=== PATIENT | female | born 1965 | race Caucasian/White ===

== ENCOUNTER → 2016-03-06 | Outpatient (CLI) | payer MEDICARE, MEDICAID ==
[~2016-03-06] MED LIST: ALLEGRA180 MG PO; CARDIZEM120 MG; Fioricet 325 MG1 TAB PO; PROAIR HFA0.09 MG/AC IH; REGLAN10 MG PO; SINGULAIR10 MG PO; SOMA350 MG; SYNTHROID0.05 MG PO; VICODIN HP 6601 TA1 PO; ZOFRAN4 MG PO
[2016-03-06 11:42] LABS: HEMOGLOBIN A1c 4.9 % (4.8-5.6)
[2016-03-06 11:53] LABS: EST GLOM FILT AFRICAN AMERICAN > 60 ml/min
[2016-03-07 06:14] LABS: TOTAL PROTEIN, SERUM 6.6 g/dL (6.0-8.5)
[2016-03-07 08:11] LABS: RHEUMATOID ARTHRITIS FACTOR <10.0 IU/mL (0.0-13.9)
[2016-03-07 13:04] LABS: SJOGREN ANTI-SS-A <0.2 AI (0.0-0.9); SJOREN AB, ANTI-SS-B <0.2 AI (0.0-0.9)
[2016-03-07 15:08] LABS: A/G RATIO 1.4 (0.7-1.7); ALBUMIN 3.9 g/dL (2.9-4.4); ALPHA-1-GLOBULIN 0.3 g/dL (0.0-0.4); BETA GLOBULIN 0.9 g/dL (0.7-1.3); GAMMA GLOBULIN 0.9 g/dL (0.4-1.8); GLOBULIN, TOTAL 2.7 g/dL (2.2-3.9); M-SPIKE Not Observed g/dL (Not Observed)
[2016-03-07 18:08] LABS: T.PALLIDUM ANTIBODIES Negative (Negative)
[2016-03-08 14:06] LABS: METHYLMALONIC ACID 706961 457 nmol/L (0-378)
== END | disposition home or self-care (01) ==
LOC: LAB 10:52
PROVIDERS: Psychiatry & Neurology Neurology
DX: G60.9 Hereditary and idiopathic neuropathy, unspecified (principal); E23.6 Other disorders of pituitary gland; Z79.899 Other long term (current) drug therapy

== ENCOUNTER → 2016-06-19 | Outpatient (CLI) | payer OTHER | END | disposition home or self-care (01) | LOC: LAB 17:26 | DX: Z51.81 Encounter for therapeutic drug level monitoring (principal); E53.8 Deficiency of other specified B group vitamins ==

== ENCOUNTER 2016-12-01 15:45 | Emergency (ER) | payer OTHER ==
[~2016-12-01] VITALS: Wt 56.2 kg
--- NOTE | ~2016-12-01 | EKG ---
[place], [place] ELECTROCARDIOGRAM REPORT NAME: NITA LARA UNIT #: [id number] ROOM: DOCTOR: RAJAN SANCHEZ MD BIRTHDATE: [birth year] DOS: 12/01/2016 TIME: 1620 hours. Normal sinus rhythm at 72 beats per minute. Low voltage in limb leads. The tracing is otherwise normal. No previous tracing is available for comparison. RAJAN SANCHEZ MD CM:[email or web address]:ELECTROCARDIOGRAM REPORT [id number] RAJAN SANCHEZ MD
[2016-12-01 16:17] LABS: BASO % 0.1 % (0.0-1.0); EOS % 0.1 % (1.0-4.0); HEMOGLOBIN 13.6 g/dl (12.0-16.0); LYMPH # 1.3 10*3/uL (1.3-4.4); LYMPH % 18.1 % (27.0-41.0); MEAN CORPUSCULAR HGB 31.6 pg (27.0-31.0); MONO # 0.4 10*3/uL (0.1-1.0); MONO % 5.2 % (3.0-9.0); NEUT # 5.5 10*3/uL (2.3-7.9); NEUT % 76.2 % (47.0-73.0); PLATELET COUNT AUTOMATED 349 10*3/uL (130-400); RED CELL DISTRI WIDTH 13.1 % (0-14.5); WHITE BLOOD COUNT 7.2 10*3/uL (4.8-10.8)
[2016-12-01 16:35] LABS: ALBUMIN 4.2 gm/dl (3.1-4.5); ALKALINE PHOSPHATASE 75 U/L (45-117); BUN 17 mg/dl (7-24); CHLORIDE 103 mmol/L (98-107); CREATININE 0.72 mg/dL (0.55-1.02); POTASSIUM 3.8 mmol/L (3.5-5.1); SGOT/AST 18 IU/L (3-35); SGPT/ALT 20 U/L (12-78); SODIUM 138 mmol/L (136-145); TOTAL PROTEIN 8.1 gm/dL (6.4-8.2)
[2016-12-01 16:36] LABS: TROPONIN I < 0.015 ng/ml (<0.045)
[2016-12-01 16:52] LABS: BILIRUBIN NEGATIVE (NEGATIVE); BLOOD NEGATIVE (NEGATIVE); CLARITY CLEAR (CLEAR); COLOR YELLOW (YELLOW); GLUCOSE NEGATIVE (NEGATIVE); KETONE 1+ (NEGATIVE); LEUKO ESTERASE NEGATIVE (NEGATIVE); NITRITE NEGATIVE (NEGATIVE); SPECIFIC GRAVITY >= 1.030 (1.005-1.030); UROBILINOGEN 0.2 E.U./dl (0.2-1.0)
[2016-12-01 16:58] LABS: HYALINE CAST 0-2
[2016-12-01 16:59] LABS: MUCOUS 2+
[2016-12-01 17:00] LABS: BACTERIA 1+
[2016-12-01] MEDS ORDERED: GOOD NEIGHBOR M25 M1 PO (17:36)
[2016-12-01] MEDS ORDERED: ZOFRAN4 MG PO (17:36)
== END 2016-12-01 17:52 | disposition home or self-care (01) ==
LOC: ED 15:45
PROVIDERS: Nurse Practitioner Family
DX: R42 Dizziness and giddiness (principal); R51 Headache; R05 Cough; R09.81 Nasal congestion; R03.0 Elevated blood-pressure reading, without diagnosis of hypertension; Z88.2 Allergy status to sulfonamides; Z88.6 Allergy status to analgesic agent; Z88.8 Allergy status to other drugs, medicaments and biological substances; Z91.040 Latex allergy status; Z79.899 Other long term (current) drug therapy

== ENCOUNTER 2017-09-16 14:45 | Emergency (ER) | payer OTHER ==
[~2017-09-16] VITALS: Ht 162.5 cm; Wt 53.5 kg
[~2017-09-16 14:45] MED LIST changes: +GOOD NEIGHBOR M25 M1 PO
[2017-09-16] MEDS ORDERED: OXYCODONE5 M1 PO (14:49)
[2017-09-16] MEDS ORDERED: MACROBID100 M1 PO (14:49)
[2017-09-16 15:11] LABS: BILIRUBIN 1+ (NEGATIVE); BLOOD NEGATIVE (NEGATIVE); CLARITY CLEAR (CLEAR); COLOR YELLOW (YELLOW); GLUCOSE NEGATIVE (NEGATIVE); KETONE NEGATIVE (NEGATIVE); LEUKO ESTERASE NEGATIVE (NEGATIVE); NITRITE NEGATIVE (NEGATIVE)
[2017-09-16 15:19] LABS: BASO % 0.1 % (0.0-1.0); EOS # 0.1 10*3/uL (0.0-0.4); EOS % 0.9 % (1.0-4.0); HEMATOCRIT 35.8 % (37.0-47.0); HEMOGLOBIN 11.8 g/dl (12.0-16.0); LYMPH # 1.5 10*3/uL (1.3-4.4); LYMPH % 20.1 % (27.0-41.0); MEAN CELL VOLUME 91.1 fl (81.0-99.0); MEAN PLATELET VOLUME 10.9 fl (9.6-12.3); MONO # 0.5 10*3/uL (0.1-1.0); MONO % 7.3 % (3.0-9.0); NEUT # 5.3 10*3/uL (2.3-7.9); NEUT % 71.3 % (47.0-73.0); PLATELET COUNT AUTOMATED 433 10*3/uL (130-400); RED BLOOD COUNT 3.93 10*6/uL (4.10-5.10); RED CELL DISTRI WIDTH 12.9 % (0-14.5); WHITE BLOOD COUNT 7.4 10*3/uL (4.8-10.8)
[2017-09-16 15:25] LABS: RBC 0-2 rbc/hpf (0-2); WBC 16-20 wbc/hpf (0-5)
[2017-09-16 15:26] LABS: BACTERIA 1+; MUCOUS TRACE
[2017-09-16 15:34] LABS: ALBUMIN 3.3 gm/dl (3.1-4.5); ALKALINE PHOSPHATASE 92 U/L (45-117); BUN 15 mg/dl (7-24); CHLORIDE 106 mmol/L (98-107); CREATININE 0.84 mg/dL (0.55-1.02); POTASSIUM 3.1 mmol/L (3.5-5.1); SGOT/AST 15 IU/L (3-35); SGPT/ALT 32 U/L (12-78); SODIUM 143 mmol/L (136-145); TOTAL PROTEIN 7.8 gm/dL (6.4-8.2)
[2017-09-16] MEDS ORDERED: PYRIDIUM200 M1 PO (16:46)
[2017-09-16] MEDS ORDERED: ZOFRAN4 MG PO (16:46)
[2017-09-16] MEDS ORDERED: CIPRO500 MG PO (16:49)
== END 2017-09-16 17:12 | disposition home or self-care (01) ==
LOC: ED 14:45
PROVIDERS: Nurse Practitioner Family
DX: N39.0 Urinary tract infection, site not specified (principal); R03.0 Elevated blood-pressure reading, without diagnosis of hypertension; R10.2 Pelvic and perineal pain; Z88.2 Allergy status to sulfonamides; Z88.6 Allergy status to analgesic agent; Z88.8 Allergy status to other drugs, medicaments and biological substances; Z91.040 Latex allergy status; Z79.899 Other long term (current) drug therapy

== ENCOUNTER 2017-12-28 04:32 | Emergency (ER) | payer OTHER ==
[~2017-12-28] VITALS: Ht 162.5 cm; Wt 53.5 kg
[~2017-12-28 04:32] MED LIST changes: +CIPRO500 MG PO; +MACROBID100 M1 PO; +OXYCODONE5 M1 PO; +PYRIDIUM200 M1 PO
== END 2017-12-28 06:58 | disposition home or self-care (01) ==
LOC: ED 04:32
DX: S16.1XXA Strain of muscle, fascia and tendon at neck level, initial encounter (principal); S20.212A Contusion of left front wall of thorax, initial encounter; S09.90XA Unspecified injury of head, initial encounter; J45.909 Unspecified asthma, uncomplicated; Z90.49 Acquired absence of other specified parts of digestive tract; Z88.2 Allergy status to sulfonamides; Z88.6 Allergy status to analgesic agent; Z88.8 Allergy status to other drugs, medicaments and biological substances; Z79.2 Long term (current) use of antibiotics; Z79.899 Other long term (current) drug therapy; V89.1XXA Person injured in unspecified nonmotor-vehicle accident, nontraffic, initial encounter; Y93.89 Activity, other specified; Y92.89 Other specified places as the place of occurrence of the external cause; Y99.8 Other external cause status

== ENCOUNTER → 2018-04-08 | Outpatient (CLI) | payer OTHER ==
[2018-04-08 08:33] LABS: BASO % 0.5 % (0.0-1.0); EOS # 0.2 10*3/uL (0.0-0.4); EOS % 3.2 % (1.0-4.0); HEMATOCRIT 35.8 % (37.0-47.0); HEMOGLOBIN 11.8 g/dl (12.0-16.0); LYMPH # 1.7 10*3/uL (1.3-4.4); LYMPH % 29.9 % (27.0-41.0); MEAN CELL VOLUME 95.5 fl (81.0-99.0); MEAN CORPUSCULAR HGB 31.5 pg (27.0-31.0); MEAN PLATELET VOLUME 9.8 fl (9.6-12.3); MONO # 0.6 10*3/uL (0.1-1.0); MONO % 11.4 % (3.0-9.0); NEUT # 3.1 10*3/uL (2.3-7.9); NEUT % 54.6 % (47.0-73.0); PLATELET COUNT AUTOMATED 310 10*3/uL (130-400); RED BLOOD COUNT 3.75 10*6/uL (4.10-5.10); RED CELL DISTRI WIDTH 13.3 % (0-14.5); WHITE BLOOD COUNT 5.6 10*3/uL (4.8-10.8)
[2018-04-08 08:42] LABS: BUN 16 mg/dl (7-24); CPK 84 U/L (26-192)
[2018-04-09 13:10] LABS: ANTI-RNP ANTIBODIES 1.6 AI (0.0-0.9)
[2018-04-09 14:11] LABS: A/G RATIO 1.5 (0.7-1.7); ALBUMIN 3.6 g/dL (2.9-4.4); ALPHA-1-GLOBULIN 0.3 g/dL (0.0-0.4); ALPHA-2-GLOBULIN 0.6 g/dL (0.4-1.0); BETA GLOBULIN 0.8 g/dL (0.7-1.3); GAMMA GLOBULIN 0.6 g/dL (0.4-1.8); GLOBULIN, TOTAL 2.4 g/dL (2.2-3.9); M-SPIKE Not Observed g/dL (Not Observed)
[2018-04-09 15:06] LABS: ALDOLASE 002030 2.3 U/L (3.3-10.3)
[2018-04-09 21:10] LABS: CCP ANTIBODIES IGG/IGA 8 units (0-19)
== END | disposition home or self-care (01) ==
LOC: LAB 07:14
PROVIDERS: Internal Medicine Rheumatology
DX: E55.9 Vitamin D deficiency, unspecified (principal); E03.9 Hypothyroidism, unspecified; I70.229 Atherosclerosis of native arteries of extremities with rest pain, unspecified extremity; M62.81 Muscle weakness (generalized); M25.50 Pain in unspecified joint; R53.83 Other fatigue

== ENCOUNTER 2019-02-25 18:17 | Emergency (ER) | payer OTHER ==
[~2019-02-25] VITALS: Wt 63.5 kg
[2019-02-25] MEDS ORDERED: LEVOFLOXACIN500 MG PO (19:47)
== END 2019-02-25 19:56 | disposition home or self-care (01) ==
LOC: ED 18:17
DX: J18.9 Pneumonia, unspecified organism (principal); Z88.2 Allergy status to sulfonamides; Z88.6 Allergy status to analgesic agent; Z88.8 Allergy status to other drugs, medicaments and biological substances; Z79.899 Other long term (current) drug therapy

== ENCOUNTER → 2019-11-12 | Outpatient (CLI) | payer OTHER ==
[~2019-11-12] MED LIST changes: +LEVOFLOXACIN500 MG PO
[2019-11-18 00:06] LABS: METHYLMALONIC ACID 265 nmol/L (0-378)
== END | disposition home or self-care (01) ==
LOC: LAB 16:45
PROVIDERS: ATTEND Physician Assistant
DX: G60.9 Hereditary and idiopathic neuropathy, unspecified (principal); M35.1 Other overlap syndromes; Z79.899 Other long term (current) drug therapy

== ENCOUNTER 2019-12-17 19:05 | Inpatient (IN) | payer OTHER ==
[~2019-12-17] VITALS: Ht 162.6 cm; Wt 69.0 kg
[2019-12-17 19:14] VITALS: BP 131/71
[2019-12-17 20:13] LABS: HEMATOCRIT 33.7 % (37.0-47.0); MEAN CELL VOLUME 88.9 fl (81.0-99.0); MEAN CORPUSCULAR HGB 28.2 pg (27.0-31.0); MEAN CORPUSCULAR HGB CONC 31.8 g/dl (33.0-37.0); MEAN PLATELET VOLUME 10.2 fl (9.6-12.3); PLATELET COUNT AUTOMATED 323 10*3/uL (130-400); RED BLOOD COUNT 3.79 10*6/uL (4.10-5.10); RED CELL DISTRI WIDTH 13.8 % (0-14.5); WHITE BLOOD COUNT 14.9 10*3/uL (4.8-10.8)
--- NOTE | 2019-12-17 20:14 | NUR ---
Pt to ct at this time.
--- NOTE | 2019-12-17 20:24 | NUR ---
Pt back from ct at this time
[2019-12-17 20:31] LABS: BASOPHILS 1 % (0-1); PLATELET SUFFICIENCY NORMAL (NORMAL); TOTAL CELLS COUNTED 100 #CELLS
[2019-12-17 20:36] LABS: ALBUMIN 2.9 gm/dl (3.1-4.5); CREATININE 1.2 mg/dL (0.55-1.02); POTASSIUM 3.2 mmol/L (3.5-5.1); TOTAL PROTEIN 7.3 gm/dL (6.4-8.2)
[2019-12-17 20:47] VITALS: BP 108/47
--- NOTE | 2019-12-17 20:51 | NUR ---
Family updated on pt status at this time.
--- NOTE | 2019-12-17 22:21 | NUR ---
Pt currently sleeping at this time.
--- NOTE | 2019-12-17 22:30 | NUR ---
in to see pt at this time and stated she is going to admit pt at this time.
[2019-12-17 22:37] VITALS: BP 117/55
--- NOTE | 2019-12-17 23:43 | NUR ---
Family updated on pt status at this time.Aware pt is being admitted at this time.
[2019-12-18] VITALS (10 sets, daily range): BP systolic 103–148; BP diastolic 55–102
--- NOTE | 2019-12-18 01:07 | NUR ---
Pt currently sleeping at this time.
--- NOTE | 2019-12-18 02:30 | NUR ---
In to see pt at this time.Pt states she is doing ok and does not need to void at this time.Pt given snack at this time,
[2019-12-18 07:07] LABS: BILIRUBIN Negative (Negative); BLOOD Negative (Negative); CLARITY Clear (Clear); COLOR Yellow (Yellow); GLUCOSE Negative (Negative); KETONE Negative (Negative); LEUKO ESTERASE 1+ (Negative); NITRITE Negative (Negative); PH 6.5 (4.5-8.0); SPECIFIC GRAVITY 1.015 (1.001-1.030)
--- NOTE | 2019-12-18 07:08 | NUR ---
Transfer of care to Fouzia garcia.
--- NOTE | 2019-12-18 07:42 | NUR ---
THE PATIENTS BREAKFAST WAS ORDERED
[2019-12-18 07:48] LABS: BACTERIA TRACE
--- NOTE | 2019-12-18 08:24 | NUR ---
A 54, admitted to , under the services of ADONIS Levin DO with a diagnosis of BRONCHOSPASM,BRONCHITIS. Chief complaint is SHORT OF BREATH,COUGH. Patient arrived via stretcher from ER. Monitor applied. Initial assessment completed. Vital signs taken and recorded. ADONIS LEVIN DO notified of admission to the unit. Orders received. See assessment for past medical history, medications and allergies. Patient and/or family oriented to unit. [facility]. Clothing/patient valuable form completed. KARYN MARTINEZ
[2019-12-18] MEDS ORDERED: NEURONTIN600 MG PO (09:00)
[2019-12-18] MEDS ORDERED: CELECOXIB200 M1 PO (09:01)
[2019-12-18] MEDS ORDERED: VITAMIN B121000 MC1 SC (09:02)
[2019-12-18] MEDS ORDERED: AMITRIPTYLINE50 MG PO (09:02)
[2019-12-18] MEDS ORDERED: VOLTAREN50 M1 PO (09:03)
[2019-12-18] MEDS ORDERED: CYMBALTA30 MG PO (09:04)
[2019-12-18] MEDS ORDERED: AMBIEN10 M1 PO (09:04)
--- NOTE | 2019-12-18 13:22 | NUR ---
[employer] Process Engineer in to talk to patient. Patient states lives at home with nephew. There are no steps in the home. Physician: mendez [facility]acy: [facility] Home health services: none Patient's level of ADLs: INDEPENDENT Patient has working utilities: all working DME: [employer] Follow-up physician's appointment after d/c: will be made by hospitalist nurse director upon discharge Does patient want to access PORTAL?: no Discharge plan discussed with patient, she lives at home with nephew. she states she is independent in adls and ambulation, drives, she states she will return home when discharged and denies any home needs, case management will follow. RICK MUNOZ
--- NOTE | 2019-12-18 14:31 | NUR ---
MEDICATED WITH PRN NORCO PER ORDER AND REQUEST FOR RIB PAIN FROM COUGHING.
[2019-12-19] VITALS: BP 137/61
[2019-12-19 06:09] LABS: ALBUMIN 2.5 gm/dl (3.1-4.5); ALKALINE PHOSPHATASE 121 U/L (45-117); BUN 14 mg/dl (7-24); CHLORIDE 113 mmol/L (98-107); CHOLESTEROL 134 mg/dL (<200); CREATININE 0.77 mg/dL (0.55-1.02); HDL CHOLESTEROL 56 mg/dl (40-60); HEMATOCRIT 32.1 % (37.0-47.0); LDL CHOLESTEROL 67 mg/dL (9-159); MEAN CELL VOLUME 89.9 fl (81.0-99.0); MEAN CORPUSCULAR HGB CONC 31.2 g/dl (33.0-37.0); MEAN PLATELET VOLUME 10.3 fl (9.6-12.3); PLATELET COUNT AUTOMATED 326 10*3/uL (130-400); RED BLOOD COUNT 3.57 10*6/uL (4.10-5.10); SGOT/AST 14 IU/L (3-35); SGPT/ALT 28 U/L (12-78); TOTAL PROTEIN 6.9 gm/dL (6.4-8.2); TRIGLYCERIDES 56 mg/dl (<150); VLDL CHOLESTEROL 11 mg/dL (6-40); WHITE BLOOD COUNT 12.5 10*3/uL (4.8-10.8)
[2019-12-19 06:12] LABS: SODIUM 141 mmol/L (136-145)
[2019-12-19 06:26] LABS: POTASSIUM 4.3 mmol/L (3.5-5.1)
[2019-12-19 06:41] LABS: TOTAL CELLS COUNTED 100 #CELLS
[2019-12-19 06:44] LABS: PLATELET SUFFICIENCY NORMAL (NORMAL)
[2019-12-19 08:00] VITALS: BP 115/53
--- NOTE | 2019-12-19 11:57 | NUR ---
MEDICATED WITH PRN NORCO PER ORDER.
[2019-12-19 12:00] VITALS: BP 135/71
[2019-12-19 16:00] VITALS: BP 119/58
[2019-12-19 20:00] VITALS: BP 132/69
--- NOTE | 2019-12-19 23:00 | NUR ---
IV started right arm with #22 protective cath after 0 attempts. Site prepped with Chloroprep. Sterile dressing applied. Patient tolerated procedure well. CADENCE LOMELI
[2019-12-20] VITALS: BP 128/73
--- NOTE | 2019-12-20 01:20 | NUR ---
PRN TYLENOL APPEARS EFFECTIVE, PT SLEEPING. NO DISTRESS NOTED. BREATHING IS EASY AND REGULAR. CALL LIGHT WITHIN REACH, WILL MONITOR
--- NOTE | 2019-12-20 01:22 | NUR ---
PRN TYLENOL GIVEN FOR PT COMPLAINTS OF RESTLESS LEGS AND ACHEY LEGS. CALL LIGHT WITHIN REACH, WILL MONITOR
--- NOTE | 2019-12-20 02:20 | NUR ---
PRN TYLENOL APPEARS EFFECTIVE, PT SLEEPING, NO DISTRESS NOTED.BREATHING IS EASY AND REGULAR. CALL LIGHT WITHIN REACH, WILL MONITOR
--- NOTE | 2019-12-20 02:33 | NUR ---
24 HR chart check completed.
[2019-12-20 05:43] LABS: BUN 18 mg/dl (7-24); CHLORIDE 112 mmol/L (98-107); CREATININE 0.78 mg/dL (0.55-1.02); POTASSIUM 4.2 mmol/L (3.5-5.1); SODIUM 140 mmol/L (136-145)
[2019-12-20 06:21] LABS: HEMATOCRIT 32.3 % (37.0-47.0); MEAN CELL VOLUME 89.7 fl (81.0-99.0); MEAN CORPUSCULAR HGB 28.3 pg (27.0-31.0); MEAN CORPUSCULAR HGB CONC 31.6 g/dl (33.0-37.0); MEAN PLATELET VOLUME 10.1 fl (9.6-12.3); NUCLEATED RED BLOOD CELL 0.1 % (0.0-0.0); PLATELET COUNT AUTOMATED 421 10*3/uL (130-400); RED CELL DISTRI WIDTH 14.2 % (0-14.5); WHITE BLOOD COUNT 17.2 10*3/uL (4.8-10.8)
[2019-12-20 06:56] LABS: TOTAL CELLS COUNTED 100 #CELLS
[2019-12-20 06:57] LABS: PLATELET SUFFICIENCY HIGH (NORMAL)
[2019-12-20 08:00] VITALS: BP 157/82
--- NOTE | 2019-12-20 09:04 | NUR ---
MEDICATED WITH NORCO PER ORDER.
[2019-12-20 12:00] VITALS: BP 119/76
--- NOTE | 2019-12-20 15:00 | NUR ---
DR. SEGURA HAS ROUNDED AND PATIENT IS TO PUT IN ISOLATION FOR COVID RULE OUT.
[2019-12-20 16:00] VITALS: BP 151/73
[2019-12-20 16:00] LABS: LDH 269 U/L (84-246)
--- NOTE | 2019-12-20 16:00 | NUR ---
DR. SIMEON AWARE PATIENT IS IN ISOLATION FOR COVID RULE OUT.
[2019-12-20 16:10] LABS: TROPONIN I < 0.015 ng/ml (<0.045)
--- NOTE | 2019-12-20 17:20 | NUR ---
NOTIFIED DR. SIMEON THAT PATIENT IS HAVING AN AXIETY ATTACK ABOUT BE CLOSED IN ISOLATION AND ALSO THAT HER NOSE INSIDE IS SORE AND FEELS LIKE IT IS BLISTERED.
--- NOTE | 2019-12-20 18:07 | NUR ---
MEDICATED WITH ATIVAN PER ORDER.
[2019-12-20 20:00] VITALS: BP 155/88
[2019-12-21] VITALS: BP 146/87
[2019-12-21 03:30] VITALS: BP 134/72
--- NOTE | 2019-12-21 04:28 | NUR ---
PO NORCO GIVEN FOR C/O PAIN IN BLE RATED 6/10. WILL MONITOR. CALL LIGHT IN REACH.
[2019-12-21 06:13] LABS: HEMATOCRIT 32.3 % (37.0-47.0); MEAN CELL VOLUME 87.3 fl (81.0-99.0); MEAN CORPUSCULAR HGB 28.1 pg (27.0-31.0); MEAN CORPUSCULAR HGB CONC 32.2 g/dl (33.0-37.0); MEAN PLATELET VOLUME 9.7 fl (9.6-12.3); PLATELET COUNT AUTOMATED 444 10*3/uL (130-400); WHITE BLOOD COUNT 17.6 10*3/uL (4.8-10.8)
[2019-12-21 06:15] LABS: ALBUMIN 2.7 gm/dl (3.1-4.5); BUN 20 mg/dl (7-24); CHLORIDE 108 mmol/L (98-107); POTASSIUM 4.1 mmol/L (3.5-5.1); SGOT/AST 44 IU/L (3-35); SODIUM 139 mmol/L (136-145)
[2019-12-21 06:17] LABS: ALKALINE PHOSPHATASE 111 U/L (45-117); CREATININE 0.76 mg/dL (0.55-1.02); LDH 313 U/L (84-246); SGPT/ALT 68 U/L (12-78); TOTAL PROTEIN 6.8 gm/dL (6.4-8.2)
[2019-12-21 07:08] LABS: BURR CELLS FEW; OVALOCYTES FEW; PLATELET SUFFICIENCY HIGH (NORMAL); TOTAL CELLS COUNTED 100 #CELLS
[2019-12-21 08:00] VITALS: BP 149/82
--- NOTE | 2019-12-21 09:00 | NUR ---
case management talks with patient, she states she will return home when discharged. case management will follow
[2019-12-21 12:00] VITALS: BP 150/79
[2019-12-21 16:00] VITALS: BP 131/82
[2019-12-21 20:00] VITALS: BP 148/89
--- NOTE | 2019-12-21 21:31 | NUR ---
NORCO GIVEN FOR C/O BACK PAIN; WILL MONITOR
--- NOTE | 2019-12-21 22:30 | NUR ---
PRN EFFECTIVE FOR PAIN
[2019-12-22] VITALS: BP 154/89
[2019-12-22 05:54] LABS: ALBUMIN 2.7 gm/dl (3.1-4.5); ALKALINE PHOSPHATASE 103 U/L (45-117); BUN 25 mg/dl (7-24); CHLORIDE 107 mmol/L (98-107); CREATININE 0.93 mg/dL (0.55-1.02); LDH 298 U/L (84-246); POTASSIUM 4.3 mmol/L (3.5-5.1); SGOT/AST 32 IU/L (3-35); SGPT/ALT 69 U/L (12-78); SODIUM 140 mmol/L (136-145); TOTAL PROTEIN 6.8 gm/dL (6.4-8.2)
[2019-12-22 06:15] LABS: HEMATOCRIT 33.7 % (37.0-47.0); MEAN CELL VOLUME 88.7 fl (81.0-99.0); MEAN CORPUSCULAR HGB 28.2 pg (27.0-31.0); MEAN CORPUSCULAR HGB CONC 31.8 g/dl (33.0-37.0); MEAN PLATELET VOLUME 9.8 fl (9.6-12.3); NUCLEATED RED BLOOD CELL 0.2 % (0.0-0.0); PLATELET COUNT AUTOMATED 475 10*3/uL (130-400); RED CELL DISTRI WIDTH 14.1 % (0-14.5); WHITE BLOOD COUNT 16.9 10*3/uL (4.8-10.8)
[2019-12-22 06:41] LABS: BURR CELLS FEW; PLATELET SUFFICIENCY HIGH (NORMAL); TOTAL CELLS COUNTED 100 #CELLS
[2019-12-22 08:00] VITALS: BP 104/66; BP 160/92
--- NOTE | 2019-12-22 09:00 | NUR ---
case management talks with patient, she states she will return home when discaharged and denies any home needs, case management will follow
[2019-12-22 12:00] VITALS: BP 137/71
--- NOTE | 2019-12-22 12:32 | NUR ---
norco 5/325 mg given for c/o pain, 12/04.
[2019-12-22 16:00] VITALS: BP 102/62
--- NOTE | 2019-12-22 18:46 | NUR ---
REQUIP GIVEN FOR C/O RESTLESS LEGS.
[2019-12-22 20:00] VITALS: BP 104/83
--- NOTE | 2019-12-22 21:08 | NUR ---
PT REQUESTED AND RECEIVED PO NORCO FOR BLL PAIN RATED 6/10. WILL MONITOR. CALL LIGHT IN REACH.
--- NOTE | 2019-12-22 22:00 | NUR ---
EARLIER MEDS EFFECTIVE PER PT. WILL MONITOR. CALL LIGHT IN REACH.
[2019-12-23] VITALS: BP 124/74
--- NOTE | 2019-12-23 02:29 | NUR ---
PO NORCO GIVEN FOR C/O BLL PAIN RATED 7/10. WILL MONITOR. CALL LIGHT IN REACH.
--- NOTE | 2019-12-23 03:20 | NUR ---
EARLIER MEDS EFFECTIVE PER PT. WILL MONITOR. CALL LIGHT IN REACH.
[2019-12-23 04:00] VITALS: BP 149/84
[2019-12-23 06:10] LABS: BUN 27 mg/dl (7-24); CHLORIDE 107 mmol/L (98-107); CREATININE 0.86 mg/dL (0.55-1.02); POTASSIUM 4.6 mmol/L (3.5-5.1); SODIUM 139 mmol/L (136-145)
[2019-12-23 06:14] LABS: HEMATOCRIT 32.5 % (37.0-47.0); MEAN CELL VOLUME 87.8 fl (81.0-99.0); MEAN CORPUSCULAR HGB 27.6 pg (27.0-31.0); MEAN CORPUSCULAR HGB CONC 31.4 g/dl (33.0-37.0); MEAN PLATELET VOLUME 9.5 fl (9.6-12.3); NUCLEATED RED BLOOD CELL 0.2 % (0.0-0.0); PLATELET COUNT AUTOMATED 453 10*3/uL (130-400)
[2019-12-23 07:18] LABS: BURR CELLS FEW; OVALOCYTES FEW; TOTAL CELLS COUNTED 100 #CELLS
[2019-12-23 07:19] LABS: PLATELET SUFFICIENCY HIGH (NORMAL); ROULEAUX SLIGHT
[2019-12-23 08:00] VITALS: BP 154/88
[2019-12-23 12:00] VITALS: BP 141/79
[2019-12-23] MEDS ORDERED: PREDNISONE10 MG PO (14:48)
[2019-12-23] MEDS ORDERED: DOXYCYCLINE100 M3 PO (14:48)
--- NOTE | 2019-12-23 16:20 | NUR ---
Discharge instructions reviewed with patient/family. Patient receptive and verbalizes understanding. Follow-up care arranged. Written instructions given to patient/family. CASIMIRO HYMAN
== END 2019-12-23 16:20 | disposition home or self-care (01) | DRG 871 ==
LOC: ED 19:05 → EDHOLD 22:48 → 4E 22:48
PROVIDERS: Emergency Medicine; Hospitalist; Internal Medicine; Internal Medicine Critical Care Medicine; Student in an Organized Health Care Education/Training Program; ADMIT Internal Medicine; ATTEND Internal Medicine
DX: A41.9 Sepsis, unspecified organism (principal); N17.0 Acute kidney failure with tubular necrosis; J18.9 Pneumonia, unspecified organism; E44.0 Moderate protein-calorie malnutrition; J45.901 Unspecified asthma with (acute) exacerbation; K21.9 Gastro-esophageal reflux disease without esophagitis; E87.6 Hypokalemia; R73.9 Hyperglycemia, unspecified; M06.9 Rheumatoid arthritis, unspecified; D64.9 Anemia, unspecified; Z20.828 Contact with and (suspected) exposure to other viral communicable diseases; J45.990 Exercise induced bronchospasm; Z88.2 Allergy status to sulfonamides; Z88.6 Allergy status to analgesic agent; Z88.8 Allergy status to other drugs, medicaments and biological substances; Z79.899 Other long term (current) drug therapy; E03.9 Hypothyroidism, unspecified; Z82.49 Family history of ischemic heart disease and other diseases of the circulatory system; Z90.49 Acquired absence of other specified parts of digestive tract; Z79.51 Long term (current) use of inhaled steroids

== ENCOUNTER → 2020-04-15 | Outpatient (CLI) | payer OTHER ==
[~2020-04-15] MED LIST changes: +AMBIEN10 M1 PO; +AMITRIPTYLINE50 MG PO; +CELECOXIB200 M1 PO; +CYMBALTA30 MG PO; +DOXYCYCLINE100 M3 PO; +NEURONTIN600 MG PO; +PREDNISONE10 MG PO; +VITAMIN B121000 MC1 SC; +VOLTAREN50 M1 PO
== END | disposition home or self-care (01) ==
LOC: CT 12:43
PROVIDERS: ATTEND Family Medicine
DX: R91.8 Other nonspecific abnormal finding of lung field (principal)

== ENCOUNTER 2020-06-01 19:15 | Emergency (ER) | payer OTHER ==
[~2020-06-01] VITALS: Ht 162.5 cm; Wt 72.6 kg
== END 2020-06-01 21:49 | disposition home or self-care (01) ==
LOC: ED 19:15
DX: S83.91XA Sprain of unspecified site of right knee, initial encounter (principal); Z88.2 Allergy status to sulfonamides; Z88.5 Allergy status to narcotic agent; Z79.899 Other long term (current) drug therapy; Z90.49 Acquired absence of other specified parts of digestive tract; Z98.890 Other specified postprocedural states; X58.XXXA Exposure to other specified factors, initial encounter; Y93.89 Activity, other specified; Y92.89 Other specified places as the place of occurrence of the external cause; Y99.8 Other external cause status

== ENCOUNTER → 2020-08-09 | Outpatient (CLI) | payer OTHER ==
[2020-08-09 12:43] LABS: THYROXINE (T4) TOTAL 11.8 ug/dl (4.8-13.9)
[2020-08-09 12:48] LABS: THYROID STIM HORMONE (HS) 1.22 uIU/ml (0.358-4.75)
== END | disposition home or self-care (01) ==
LOC: CT 11:00 → LAB 11:07
PROVIDERS: Family Medicine; ATTEND Internal Medicine Critical Care Medicine
DX: J98.4 Other disorders of lung (principal); I25.10 Atherosclerotic heart disease of native coronary artery without angina pectoris; E04.1 Nontoxic single thyroid nodule; R91.1 Solitary pulmonary nodule; J45.40 Moderate persistent asthma, uncomplicated; R06.83 Snoring

== ENCOUNTER 2020-11-14 21:36 | Emergency (ER) | payer OTHER ==
[2020-11-14 23:31] LABS: BILIRUBIN Negative (Negative); BLOOD Negative (Negative); CLARITY Clear (Clear); COLOR Dark Yellow (Yellow); GLUCOSE Negative (Negative); KETONE 3+ (Negative); LEUKO ESTERASE Negative (Negative); NITRITE Negative (Negative); PH 6.5 (4.5-8.0); SPECIFIC GRAVITY >= 1.030 (1.001-1.030)
[2020-11-15 00:43] LABS: BACTERIA TRACE; RBC 0-2 rbc/hpf (0-2)
[2020-11-15] MEDS ORDERED: CIPRO500 MG PO (00:58)
[2020-11-15] MEDS ORDERED: MACROBID100 M1 PO (10:19)
== END 2020-11-15 01:02 | disposition home or self-care (01) ==
LOC: ED 21:36
PROVIDERS: Internal Medicine
DX: N39.0 Urinary tract infection, site not specified (principal); Z88.2 Allergy status to sulfonamides; Z88.6 Allergy status to analgesic agent; Z88.8 Allergy status to other drugs, medicaments and biological substances; Z79.899 Other long term (current) drug therapy; Z79.2 Long term (current) use of antibiotics; Z90.49 Acquired absence of other specified parts of digestive tract; Z98.890 Other specified postprocedural states

== ENCOUNTER 2020-11-19 15:54 | Emergency (ER) | payer OTHER | END 2020-11-19 21:00 | disposition left against medical advice (07) | LOC: ED 15:54 | DX: R11.0 Nausea (principal); Z53.21 Procedure and treatment not carried out due to patient leaving prior to being seen by health care provider ==

== ENCOUNTER → 2020-12-20 | Outpatient (CLI) | payer OTHER ==
[~2020-12-20] MED LIST changes: +DICLOFENAC SOD100 MG PO; +METHOCARBAMOL500 M1 PO; +PREDNISONE20 M1 PO
== END | disposition home or self-care (01) ==
LOC: US 16:00
PROVIDERS: ATTEND Podiatrist
DX: M79.605 Pain in left leg (principal)

== ENCOUNTER 2020-12-21 18:35 | Emergency (ER) | payer OTHER ==
[~2020-12-21 18:35] MED LIST changes: -DICLOFENAC SOD100 MG PO; -METHOCARBAMOL500 M1 PO; -PREDNISONE20 M1 PO
[2020-12-21] MEDS ORDERED: PREDNISONE20 M1 PO (20:57)
[2020-12-21] MEDS ORDERED: METHOCARBAMOL500 M1 PO (20:57)
== END 2020-12-21 21:02 | disposition home or self-care (01) ==
LOC: ED 18:35
DX: M54.32 Sciatica, left side (principal); Z88.2 Allergy status to sulfonamides; Z88.8 Allergy status to other drugs, medicaments and biological substances; Z79.899 Other long term (current) drug therapy

== ENCOUNTER 2020-12-23 07:25 | Emergency (ER) | payer OTHER ==
[~2020-12-23] VITALS: Ht 162.5 cm; Wt 69.9 kg
[~2020-12-23 07:25] MED LIST changes: +METHOCARBAMOL500 M1 PO; +PREDNISONE20 M1 PO
[2020-12-23] MEDS ORDERED: DICLOFENAC SOD100 MG PO (07:33)
[2020-12-23 08:12] LABS: HEMATOCRIT 37.4 % (37.0-47.0); MEAN CELL VOLUME 92.1 fl (81.0-99.0); MEAN CORPUSCULAR HGB 28.8 pg (27.0-31.0); MEAN CORPUSCULAR HGB CONC 31.3 g/dl (33.0-37.0); PLATELET COUNT AUTOMATED 392 10*3/uL (130-400); RED BLOOD COUNT 4.06 10*6/uL (4.10-5.10); RED CELL DISTRI WIDTH 14.4 % (0-14.5)
[2020-12-23 08:44] LABS: PLATELET SUFFICIENCY NORMAL (NORMAL); TOTAL CELLS COUNTED 100 #CELLS
[2020-12-23 09:12] LABS: ALBUMIN 3.5 gm/dl (3.1-4.5); ALKALINE PHOSPHATASE 123 U/L (45-117); BUN 16 mg/dl (7-24); CHLORIDE 110 mmol/L (98-107); CREATININE 0.84 mg/dL (0.55-1.02); POTASSIUM 3.8 mmol/L (3.5-5.1); SGOT/AST 15 IU/L (3-35); SGPT/ALT 47 U/L (12-78); SODIUM 139 mmol/L (136-145); TOTAL PROTEIN 7.1 gm/dL (6.4-8.2)
[2020-12-23 12:24] LABS: BILIRUBIN Negative (Negative); BLOOD Negative (Negative); CLARITY Clear (Clear); COLOR Yellow (Yellow); GLUCOSE Negative (Negative); KETONE Negative (Negative); LEUKO ESTERASE Trace (Negative); NITRITE Negative (Negative); SPECIFIC GRAVITY >= 1.030 (1.001-1.030)
[2020-12-23 12:29] LABS: BACTERIA 2+; EPITHELIAL CELLS 21-30; YEAST 1+
== END 2020-12-23 19:31 | disposition short-term general hospital (02) ==
LOC: ED 07:25
PROVIDERS: Emergency Medicine
DX: M48.061 Spinal stenosis, lumbar region without neurogenic claudication (principal); K21.9 Gastro-esophageal reflux disease without esophagitis; Z88.2 Allergy status to sulfonamides; Z88.6 Allergy status to analgesic agent; Z88.8 Allergy status to other drugs, medicaments and biological substances; Z79.899 Other long term (current) drug therapy

== ENCOUNTER → 2021-02-09 | Outpatient (CLI) | payer OTHER ==
[~2021-02-09] MED LIST changes: +DICLOFENAC SOD100 MG PO
== END | disposition home or self-care (01) ==
LOC: NM 01-09 07:00
PROVIDERS: ATTEND Internal Medicine Gastroenterology
DX: K30 Functional dyspepsia (principal); K21.9 Gastro-esophageal reflux disease without esophagitis

== ENCOUNTER → 2021-02-27 | Outpatient (CLI) | payer OTHER | END | disposition home or self-care (01) | LOC: COVID19 17:48 | PROVIDERS: ATTEND Internal Medicine | DX: Z11.52 Encounter for screening for COVID-19 (principal) ==

== ENCOUNTER 2021-07-09 20:04 | Emergency (ER) | payer OTHER ==
[~2021-07-09] VITALS: Ht 162.5 cm; Wt 71.2 kg
[2021-07-09] MEDS ORDERED: VIBRAMYCIN100 MG PO (22:44)
[2021-07-09] MEDS ORDERED: NAPROSYN500 MG PO (22:44)
== END 2021-07-09 23:42 | disposition home or self-care (01) ==
LOC: ED 20:04
DX: S90.32XA Contusion of left foot, initial encounter (principal); Z20.822 Contact with and (suspected) exposure to COVID-19; Z88.2 Allergy status to sulfonamides; Z88.8 Allergy status to other drugs, medicaments and biological substances; Z88.6 Allergy status to analgesic agent; Z79.899 Other long term (current) drug therapy; Z90.49 Acquired absence of other specified parts of digestive tract; X58.XXXA Exposure to other specified factors, initial encounter; Y93.89 Activity, other specified; Y92.89 Other specified places as the place of occurrence of the external cause; Y99.8 Other external cause status

== ENCOUNTER → 2021-09-05 | Outpatient (CLI) | payer OTHER ==
[~2021-09-05] MED LIST changes: +NAPROSYN500 MG PO; +VIBRAMYCIN100 MG PO
[2021-09-06 02:06] LABS: TOTAL PROTEIN, SERUM 6.4 g/dL (6.0-8.5)
[2021-09-06 04:06] LABS: IMMUNOGLOBULIN G, QNT 661 mg/dL (586-1602); IMMUNOGLOBULIN M, QNT 110 mg/dL (26-217)
[2021-09-06 16:07] LABS: A/G RATIO 1.2 (0.7-1.7); ALBUMIN 3.5 g/dL (2.9-4.4); ALPHA-1-GLOBULIN 0.3 g/dL (0.0-0.4); ALPHA-2-GLOBULIN 0.8 g/dL (0.4-1.0); GAMMA GLOBULIN 0.7 g/dL (0.4-1.8); GLOBULIN, TOTAL 2.9 g/dL (2.2-3.9); M-SPIKE Not Observed g/dL (Not Observed)
== END ==
LOC: LAB 07:38
PROVIDERS: ATTEND Physician Assistant
DX: M35.1 Other overlap syndromes (principal); G89.29 Other chronic pain; G60.9 Hereditary and idiopathic neuropathy, unspecified; M54.50 Low back pain, unspecified

== ENCOUNTER 2021-11-29 15:15 | Emergency (ER) | payer OTHER ==
[~2021-11-29] VITALS: Wt 65.8 kg
[2021-11-29 16:09] LABS: BASO % 0.2 % (0.0-1.0); EOS % 0.2 % (1.0-4.0); HEMATOCRIT 37.3 % (37.0-47.0); LYMPH # 0.9 10*3/uL (1.3-4.4); LYMPH % 14.6 % (27.0-41.0); MEAN CELL VOLUME 91.4 fl (81.0-99.0); MEAN CORPUSCULAR HGB 29.9 pg (27.0-31.0); MEAN CORPUSCULAR HGB CONC 32.7 g/dl (33.0-37.0); MONO # 0.3 10*3/uL (0.1-1.0); MONO % 4.6 % (3.0-9.0); NEUT % 80.2 % (47.0-73.0); PLATELET COUNT AUTOMATED 275 10*3/uL (130-400); RED BLOOD COUNT 4.08 10*6/uL (4.10-5.10); RED CELL DISTRI WIDTH 13.6 % (0-14.5); WHITE BLOOD COUNT 6.2 10*3/uL (4.8-10.8)
[2021-11-29 16:36] LABS: ALKALINE PHOSPHATASE 130 U/L (45-117); BUN 15 mg/dl (7-24); CHLORIDE 110 mmol/L (98-107); CREATININE 0.64 mg/dL (0.55-1.02); POTASSIUM 4.1 mmol/L (3.5-5.1); SGOT/AST 114 IU/L (3-35); SGPT/ALT 80 U/L (12-78); SODIUM 142 mmol/L (136-145); TOTAL PROTEIN 6.8 gm/dL (6.4-8.2)
[2021-11-29 17:55] LABS: BILIRUBIN Negative (Negative); BLOOD Negative (Negative); CLARITY Clear (Clear); COLOR Yellow (Yellow); GLUCOSE Negative (Negative); KETONE 1+ (Negative); LEUKO ESTERASE Negative (Negative); NITRITE Negative (Negative); SPECIFIC GRAVITY >= 1.030 (1.001-1.030)
[2021-11-29 18:09] LABS: CALCIUM OXALATE CRYSTALS 1+; EPITHELIAL CELLS 16-20; MUCOUS 2+
[2021-11-29] MEDS ORDERED: VIBRA-TAB100 MG PO (18:53)
[2021-11-29] MEDS ORDERED: PREDNISONE50 MG PO (18:53)
== END 2021-11-29 18:57 | disposition home or self-care (01) ==
LOC: ED 15:15
PROVIDERS: Internal Medicine
DX: J20.9 Acute bronchitis, unspecified (principal); Z20.822 Contact with and (suspected) exposure to COVID-19; B37.31 Acute candidiasis of vulva and vagina; J45.909 Unspecified asthma, uncomplicated; Z90.49 Acquired absence of other specified parts of digestive tract; Z79.899 Other long term (current) drug therapy; Z88.2 Allergy status to sulfonamides; Z88.6 Allergy status to analgesic agent

== ENCOUNTER 2021-12-04 15:07 | Emergency (ER) | payer OTHER ==
[~2021-12-04] VITALS: Ht 162.5 cm; Wt 65.8 kg
[~2021-12-04 15:07] MED LIST changes: +PREDNISONE50 MG PO; +VIBRA-TAB100 MG PO
[2021-12-04 19:24] LABS: BILIRUBIN Negative (Negative); BLOOD Negative (Negative); CLARITY Clear (Clear); COLOR Yellow (Yellow); GLUCOSE Negative (Negative); KETONE Negative (Negative); LEUKO ESTERASE Negative (Negative); NITRITE Negative (Negative)
[2021-12-04 19:30] LABS: EPITHELIAL CELLS 0-2; WBC 0-2 wbc/hpf (0-5)
[2021-12-04 19:31] LABS: YEAST TRACE
[2021-12-04] MEDS ORDERED: Ipratropium Brom3 ML INH (22:33)
== END 2021-12-04 22:38 | disposition home or self-care (01) ==
LOC: ED 15:07
PROVIDERS: Internal Medicine
DX: B34.9 Viral infection, unspecified (principal); Z20.822 Contact with and (suspected) exposure to COVID-19; F17.200 Nicotine dependence, unspecified, uncomplicated; Z90.49 Acquired absence of other specified parts of digestive tract; Z79.899 Other long term (current) drug therapy; Z88.2 Allergy status to sulfonamides; Z88.6 Allergy status to analgesic agent

== ENCOUNTER 2022-01-22 08:26 | Inpatient (IN) | payer OTHER ==
[~2022-01-22] VITALS: Ht 162.5 cm; Wt 61.2 kg
[~2022-01-22 08:26] MED LIST changes: +Ipratropium Brom3 ML INH
[2022-01-22 08:38] VITALS: BP 144/82
[2022-01-22 09:59] LABS: BASO % 0.3 % (0.0-1.0); HEMATOCRIT 46.4 % (37.0-47.0); LYMPH # 0.6 10*3/uL (1.3-4.4); MEAN CELL VOLUME 91.3 fl (81.0-99.0); MEAN CORPUSCULAR HGB 30.1 pg (27.0-31.0); MEAN PLATELET VOLUME 10.7 fl (9.6-12.3); MONO # 0.6 10*3/uL (0.1-1.0); MONO % 16.3 % (3.0-9.0); NEUT # 2.6 10*3/uL (2.3-7.9); NEUT % 68.1 % (47.0-73.0); PLATELET COUNT AUTOMATED 190 10*3/uL (130-400); RED BLOOD COUNT 5.08 10*6/uL (4.10-5.10); RED CELL DISTRI WIDTH 13.2 % (0-14.5); WHITE BLOOD COUNT 3.9 10*3/uL (4.8-10.8)
[2022-01-22 10:13] LABS: ACT PARTIAL THROMBO TIME 32.5 SECONDS (20.0-32.1); INTERNATIONAL NORM RATIO 0.9 (2.0-3.5)
[2022-01-22 10:15] LABS: ALKALINE PHOSPHATASE 313 U/L (45-117); BUN 20 mg/dl (7-24); CHLORIDE 105 mmol/L (98-107); CREATININE 0.83 mg/dL (0.55-1.02); LIPASE 93 U/L (73-393); POTASSIUM 3.7 mmol/L (3.5-5.1); SGPT/ALT 238 U/L (12-78); SODIUM 138 mmol/L (136-145); TOTAL PROTEIN 7.4 gm/dL (6.4-8.2)
[2022-01-22 14:20] VITALS: BP 131/67
[2022-01-22] MEDS ORDERED: PROVENTIL HFA6.7 GM INH (16:11)
[2022-01-22] MEDS ORDERED: Ipratropium Brom3 ML INH (16:11)
[2022-01-22] MEDS ORDERED: TAMIFLU 75MG CA75 MG PO (16:12)
[2022-01-22] MEDS ORDERED: PREDNISONE10 MG PO (16:12)
== END 2022-01-22 17:04 | disposition home or self-care (01) | DRG 872 ==
LOC: ED 08:26 → EDHOLD 13:35 → 4E 16:03 → EDHOLD 16:17
PROVIDERS: Emergency Medicine; ADMIT Internal Medicine; ATTEND Internal Medicine
DX: A41.9 Sepsis, unspecified organism (principal); E44.1 Mild protein-calorie malnutrition; J10.1 Influenza due to other identified influenza virus with other respiratory manifestations; Z20.822 Contact with and (suspected) exposure to COVID-19; J45.909 Unspecified asthma, uncomplicated; K21.9 Gastro-esophageal reflux disease without esophagitis; M06.9 Rheumatoid arthritis, unspecified; G62.9 Polyneuropathy, unspecified; Z88.6 Allergy status to analgesic agent; Z88.2 Allergy status to sulfonamides; Z88.8 Allergy status to other drugs, medicaments and biological substances; Z90.49 Acquired absence of other specified parts of digestive tract; Z82.49 Family history of ischemic heart disease and other diseases of the circulatory system; Z68.23 Body mass index [BMI] 23.0-23.9, adult

== ENCOUNTER → 2022-01-25 | Outpatient (CLI) | payer OTHER ==
[~2022-01-25] MED LIST changes: +PROVENTIL HFA6.7 GM INH; +TAMIFLU 75MG CA75 MG PO
== END | disposition home or self-care (01) ==
LOC: RAD 16:05
PROVIDERS: ATTEND Allergy & Immunology
DX: J40 Bronchitis, not specified as acute or chronic (principal); J15.9 Unspecified bacterial pneumonia

== ENCOUNTER → 2022-04-13 | Outpatient (CLI) | payer OTHER ==
[2022-04-13 09:45] LABS: TOTAL PROTEIN 6.8 gm/dL (6.0-8.0)
[2022-04-14 07:07] LABS: HBSAG Negative (Negative); HEP B CORE AB, IGM Negative (Negative); HEPATITIS C ANTIBODY Non Reactive (Non Reactive)
== END | disposition home or self-care (01) ==
LOC: LAB 08:24
PROVIDERS: ATTEND Family Medicine
DX: R74.01 Elevation of levels of liver transaminase levels (principal)

== ENCOUNTER → 2022-08-10 | Outpatient (CLI) | payer OTHER ==
[2022-08-10 07:18] LABS: BASO % 0.6 % (0.0-1.0); EOS # 0.2 10*3/uL (0.0-0.4); EOS % 4.7 % (1.0-4.0); HEMATOCRIT 40.9 % (37.0-47.0); LYMPH # 1.9 10*3/uL (1.3-4.4); LYMPH % 38.8 % (27.0-41.0); MEAN CELL VOLUME 93.8 fl (81.0-99.0); MEAN CORPUSCULAR HGB 30.7 pg (27.0-31.0); MEAN CORPUSCULAR HGB CONC 32.8 g/dl (33.0-37.0); MONO # 0.5 10*3/uL (0.1-1.0); NEUT # 2.2 10*3/uL (2.3-7.9); NEUT % 44.9 % (47.0-73.0); PLATELET COUNT AUTOMATED 301 10*3/uL (130-400); RED BLOOD COUNT 4.36 10*6/uL (4.10-5.10); RED CELL DISTRI WIDTH 13.6 % (0-14.5); WHITE BLOOD COUNT 4.9 10*3/uL (4.8-10.8)
[2022-08-10 07:53] LABS: ALKALINE PHOSPHATASE 92 U/L (46-116); BUN 14 mg/dl (9-23); CHLORIDE 103 mmol/L (98-107); POTASSIUM 4.4 mmol/L (3.4-5.1); SGPT/ALT 25 U/L (10-49); TOTAL PROTEIN 6.9 gm/dL (6.0-8.0)
== END | disposition home or self-care (01) ==
LOC: LAB 00:41
PROVIDERS: ATTEND Dentist General Practice
DX: Z01.818 Encounter for other preprocedural examination (principal)

== ENCOUNTER → 2023-01-07 | Outpatient (CLI) | payer OTHER | END | disposition home or self-care (01) | LOC: US 09:00 | PROVIDERS: ATTEND Nurse Practitioner Family | DX: R10.2 Pelvic and perineal pain (principal) ==

== ENCOUNTER → 2023-01-31 | Outpatient (CLI) | payer OTHER ==
[2023-01-31 10:04] LABS: BUN 17 mg/dl (9-23)
== END | disposition home or self-care (01) ==
LOC: LAB 08:42
PROVIDERS: ATTEND Physician Assistant
DX: M54.2 Cervicalgia (principal); G89.29 Other chronic pain; M35.1 Other overlap syndromes; G60.9 Hereditary and idiopathic neuropathy, unspecified

== ENCOUNTER → 2023-06-03 | Outpatient (CLI) | payer OTHER | END | disposition home or self-care (01) | LOC: RAD 11:20 | PROVIDERS: ATTEND Physician Assistant | DX: M48.54XA Collapsed vertebra, not elsewhere classified, thoracic region, initial encounter for fracture (principal); M54.6 Pain in thoracic spine ==

== ENCOUNTER 2023-06-12 15:43 | Emergency (ER) | payer OTHER ==
[~2023-06-12] VITALS: Wt 59.0 kg
[2023-06-12] MEDS ORDERED: diphenhydrAMINE hydrochloride 50 MG/ML VIAL IV ONE (16:45)
[2023-06-12] MEDS ORDERED: methylPREDNISolone sod succ 125 MG VIAL IV ONE (16:45)
[2023-06-12] MEDS ORDERED: SODIUM CHLORIDE 0.9% 1,000 ML IV ONE (16:50)
[2023-06-12 17:15] LABS: BASO % 0.1 % (0.0-1.0); EOS # 0.2 10*3/uL (0.0-0.4); EOS % 2.3 % (1.0-4.0); HEMATOCRIT 41.8 % (37.0-47.0); LYMPH # 2.2 10*3/uL (1.3-4.4); LYMPH % 25.5 % (27.0-41.0); MEAN CELL VOLUME 94.8 fl (81.0-99.0); MEAN CORPUSCULAR HGB 30.4 pg (27.0-31.0); MEAN CORPUSCULAR HGB CONC 32.1 g/dl (33.0-37.0); MEAN PLATELET VOLUME 9.4 fl (9.6-12.3); MONO # 0.6 10*3/uL (0.1-1.0); MONO % 7.3 % (3.0-9.0); NEUT # 5.7 10*3/uL (2.3-7.9); NEUT % 64.5 % (47.0-73.0); PLATELET COUNT AUTOMATED 298 10*3/uL (130-400); RED BLOOD COUNT 4.41 10*6/uL (4.10-5.10); RED CELL DISTRI WIDTH 13.1 % (0-14.5); WHITE BLOOD COUNT 8.8 10*3/uL (4.8-10.8)
[2023-06-12 17:27] LABS: ACT PARTIAL THROMBO TIME 25.9 SECONDS (20.0-32.1)
[2023-06-12 17:35] LABS: ALKALINE PHOSPHATASE 97 U/L (46-116); BUN 14 mg/dl (9-23); CHLORIDE 104 mmol/L (98-107); LIPASE 39 U/L (12-53); POTASSIUM 3.6 mmol/L (3.4-5.1); SGPT/ALT 53 U/L (5-49); TOTAL PROTEIN 6.1 gm/dL (6.0-8.0)
== END 2023-06-12 19:39 | disposition home or self-care (01) ==
LOC: ED 15:43
PROVIDERS: Physician Assistant
DX: M32.9 Systemic lupus erythematosus, unspecified (principal); J45.909 Unspecified asthma, uncomplicated; F41.9 Anxiety disorder, unspecified; F32.A Depression, unspecified; K21.9 Gastro-esophageal reflux disease without esophagitis; M79.7 Fibromyalgia; Z88.2 Allergy status to sulfonamides; Z88.6 Allergy status to analgesic agent; Z88.8 Allergy status to other drugs, medicaments and biological substances; Z90.49 Acquired absence of other specified parts of digestive tract; Z98.890 Other specified postprocedural states

== ENCOUNTER 2023-07-24 19:38 | Emergency (ER) | payer OTHER ==
[~2023-07-24] VITALS: Ht 162.5 cm; Wt 58.5 kg
[2023-07-24] MEDS ORDERED: ACETAMINOPHEN 325 MG TAB PO ONE (22:15)
== END 2023-07-24 22:31 | disposition home or self-care (01) ==
LOC: ED 19:38
DX: M25.522 Pain in left elbow (principal); M25.561 Pain in right knee; M25.551 Pain in right hip; R07.81 Pleurodynia; M54.9 Dorsalgia, unspecified; Z88.2 Allergy status to sulfonamides; Z88.6 Allergy status to analgesic agent; Z88.8 Allergy status to other drugs, medicaments and biological substances; Z79.899 Other long term (current) drug therapy; Z90.49 Acquired absence of other specified parts of digestive tract; W10.8XXA Fall (on) (from) other stairs and steps, initial encounter; Y93.89 Activity, other specified; Y92.89 Other specified places as the place of occurrence of the external cause; Y99.8 Other external cause status

== ENCOUNTER → 2023-08-27 | Outpatient (CLI) | payer OTHER ==
[2023-08-27 10:41] LABS: BILIRUBIN Negative (Negative); BLOOD Negative (Negative); CLARITY Clear (Clear); COLOR Yellow (Yellow); GLUCOSE Negative (Negative); KETONE Negative (Negative); LEUKO ESTERASE Negative (Negative); NITRITE Negative (Negative); UROBILINOGEN 0.2 E.U./dl (0.0-1.0)
[2023-08-27 10:56] LABS: BACTERIA TRACE; EPITHELIAL CELLS 0-2; MUCOUS TRACE; RBC 0-2 rbc/hpf (0-2); WBC 0-2 wbc/hpf (0-5)
== END ==
LOC: LAB 10:23
PROVIDERS: ATTEND Family Medicine
DX: R30.0 Dysuria (principal)

== ENCOUNTER → 2023-09-12 | Outpatient (CLI) | payer OTHER ==
[2023-09-12 09:30] LABS: BASO % 0.4 % (0.0-1.0); EOS # 0.1 10*3/uL (0.0-0.4); EOS % 2.1 % (1.0-4.0); LYMPH # 1.1 10*3/uL (1.3-4.4); LYMPH % 21.5 % (27.0-41.0); MEAN CELL VOLUME 95.2 fl (81.0-99.0); MEAN CORPUSCULAR HGB 30.7 pg (27.0-31.0); MEAN CORPUSCULAR HGB CONC 32.3 g/dl (33.0-37.0); MEAN PLATELET VOLUME 9.9 fl (9.6-12.3); MONO # 0.4 10*3/uL (0.1-1.0); MONO % 7.9 % (3.0-9.0); NEUT # 3.5 10*3/uL (2.3-7.9); NEUT % 67.9 % (47.0-73.0); PLATELET COUNT AUTOMATED 310 10*3/uL (130-400); RED CELL DISTRI WIDTH 12.5 % (0-14.5); WHITE BLOOD COUNT 5.2 10*3/uL (4.8-10.8)
[2023-09-12 10:13] LABS: ALKALINE PHOSPHATASE 87 U/L (46-116); BUN 10 mg/dl (9-23); CHLORIDE 107 mmol/L (98-107); CHOLESTEROL 172 mg/dL (<200); FREE T4 1.34 ng/dl (0.89-1.76); LDL CHOLESTEROL 80 mg/dL (9-159); POTASSIUM 3.7 mmol/L (3.4-5.1); SGPT/ALT 16 U/L (5-49); TOTAL PROTEIN 6.4 gm/dL (6.0-8.0); TRIGLYCERIDES 59 mg/dl (<150)
[2023-09-12 10:14] LABS: VITAMIN D, 25-HYDROXY 50.4 ng/mL (30-100)
[2023-09-13 12:08] LABS: ANTI-DSDNA ANTIBODIES <1 IU/mL (0-9)
[2023-09-13 13:07] LABS: CCP ANTIBODIES IGG/IGA 10 units (0-19)
== END | disposition home or self-care (01) ==
LOC: MAMMO 09:08 → LAB 09:08 → MAMMO 10:30
PROVIDERS: ATTEND Internal Medicine
DX: Z12.31 Encounter for screening mammogram for malignant neoplasm of breast (principal); I10 Essential (primary) hypertension; M06.9 Rheumatoid arthritis, unspecified; E53.8 Deficiency of other specified B group vitamins

== ENCOUNTER → 2024-03-26 | Outpatient (CLI) | payer OTHER | END | disposition home or self-care (01) | LOC: RAD 09:14 | PROVIDERS: ATTEND Internal Medicine | DX: M19.042 Primary osteoarthritis, left hand (principal); M19.041 Primary osteoarthritis, right hand; M79.641 Pain in right hand; M79.642 Pain in left hand; M79.89 Other specified soft tissue disorders ==

== ENCOUNTER 2024-06-02 19:45 | Emergency (ER) | payer OTHER ==
[~2024-06-02] VITALS: Ht 162.5 cm; Wt 60.3 kg
[2024-06-02 21:05] LABS: BASO % 0.4 % (0.0-1.0); EOS # 0.3 10*3/uL (0.0-0.4); EOS % 5.4 % (1.0-4.0); HEMATOCRIT 37.5 % (37.0-47.0); MEAN CELL VOLUME 95.9 fl (81.0-99.0); MEAN CORPUSCULAR HGB 30.7 pg (27.0-31.0); MEAN PLATELET VOLUME 9.7 fl (9.6-12.3); MONO # 0.4 10*3/uL (0.1-1.0); MONO % 7.5 % (3.0-9.0); NEUT # 2.8 10*3/uL (2.3-7.9); NEUT % 58.9 % (47.0-73.0); PLATELET COUNT AUTOMATED 281 10*3/uL (130-400); RED BLOOD COUNT 3.91 10*6/uL (4.10-5.10); RED CELL DISTRI WIDTH 13.2 % (0-14.5); WHITE BLOOD COUNT 4.8 10*3/uL (4.8-10.8)
[2024-06-02 21:21] LABS: BUN 16 mg/dl (9-23); CHLORIDE 104 mmol/L (98-107)
[2024-06-02] MEDS ORDERED: Acetaminophen/Hydrocodone 5 MG/325 MG TABLET PO ONE (21:55)
[2024-06-03] MEDS ORDERED: Ketorolac Tromethamine 30 MG/ML VIAL IM ONE (00:35)
[2024-06-03] MEDS ORDERED: methylPREDNISolone sod succ 125 MG VIAL IM ONE (02:00)
[2024-06-03] MEDS ORDERED: Cyclobenzaprine Hydrochlorid 10 MG TAB PO ONE (02:00)
[2024-06-03] MEDS ORDERED: PERCOCET 5-3251 EACH PO (07:35)
== END 2024-06-03 08:06 | disposition home or self-care (01) ==
LOC: ED 19:45
PROVIDERS: Emergency Medicine
DX: M79.661 Pain in right lower leg (principal); I10 Essential (primary) hypertension; K21.9 Gastro-esophageal reflux disease without esophagitis; F32.A Depression, unspecified; J45.909 Unspecified asthma, uncomplicated; F41.9 Anxiety disorder, unspecified; Z79.899 Other long term (current) drug therapy; Z88.2 Allergy status to sulfonamides; Z88.8 Allergy status to other drugs, medicaments and biological substances; Z90.49 Acquired absence of other specified parts of digestive tract; Z98.890 Other specified postprocedural states

== ENCOUNTER 2024-08-03 18:49 | Emergency (ER) | payer OTHER ==
[~2024-08-03] VITALS: Ht 162.5 cm; Wt 58.1 kg
[~2024-08-03 18:49] MED LIST changes: +PERCOCET 5-3251 EACH PO
[2024-08-03] MEDS ORDERED: Metoclopramide Hydrochloride 10 MG/2 ML VIAL IV ONE (21:10)
[2024-08-03] MEDS ORDERED: Ondansetron Hydrochloride 4 MG/2 ML VIAL IV ONE ×2 (21:10→22:40)
[2024-08-03] MEDS ORDERED: SODIUM CHLORIDE 0.9% 1,000 ML IV ONE (21:10)
[2024-08-03] MEDS ORDERED: diphenhydrAMINE hydrochloride 50 MG/ML VIAL IV ONE (21:10)
[2024-08-03 21:44] LABS: BASO % 0.2 % (0.0-1.0); EOS % 0.4 % (1.0-4.0); HEMATOCRIT 42.7 % (37.0-47.0); MEAN CELL VOLUME 91.6 fl (81.0-99.0); MEAN CORPUSCULAR HGB 30.5 pg (27.0-31.0); MEAN CORPUSCULAR HGB CONC 33.3 g/dl (33.0-37.0); MEAN PLATELET VOLUME 9.8 fl (9.6-12.3); MONO # 0.7 10*3/uL (0.1-1.0); MONO % 12.9 % (3.0-9.0); NEUT # 3.8 10*3/uL (2.3-7.9); NEUT % 75.1 % (47.0-73.0); PLATELET COUNT AUTOMATED 187 10*3/uL (130-400); RED BLOOD COUNT 4.66 10*6/uL (4.10-5.10); RED CELL DISTRI WIDTH 12.4 % (0-14.5)
[2024-08-03 22:15] LABS: ALKALINE PHOSPHATASE 150 U/L (46-116); BUN 15 mg/dl (9-23); CHLORIDE 99 mmol/L (98-107); LIPASE 33 U/L (12-53); POTASSIUM 3.7 mmol/L (3.4-5.1); SGPT/ALT 135 U/L (5-49)
[2024-08-03] MEDS ORDERED: Ondansetron4 MG PO (22:44)
[2024-08-03] MEDS ORDERED: TRAMADOL HCL50 MG PO (22:44)
[2024-08-03] MEDS ORDERED: VIBRAMYCIN100 MG PO (22:44)
[2024-08-03] MEDS ORDERED: MORPHINE Sulfate 2 MG/ML SYR IV ONE (22:45)
== END 2024-08-03 23:13 | disposition home or self-care (01) ==
LOC: ED 18:49
PROVIDERS: Emergency Medicine
DX: A08.4 Viral intestinal infection, unspecified (principal); S10.96XA Insect bite of unspecified part of neck, initial encounter; R74.01 Elevation of levels of liver transaminase levels; J45.909 Unspecified asthma, uncomplicated; K21.9 Gastro-esophageal reflux disease without esophagitis; F32.A Depression, unspecified; F41.9 Anxiety disorder, unspecified; Z79.899 Other long term (current) drug therapy; Z88.2 Allergy status to sulfonamides; Z88.8 Allergy status to other drugs, medicaments and biological substances; Z90.49 Acquired absence of other specified parts of digestive tract; Z98.890 Other specified postprocedural states; W57.XXXA Bitten or stung by nonvenomous insect and other nonvenomous arthropods, initial encounter; Y93.89 Activity, other specified; Y92.89 Other specified places as the place of occurrence of the external cause; Y99.8 Other external cause status

== ENCOUNTER → 2024-08-08 | Outpatient (CLI) | payer OTHER ==
[~2024-08-08] MED LIST changes: +Ondansetron4 MG PO; +TRAMADOL HCL50 MG PO
[2024-08-08 11:54] LABS: ALKALINE PHOSPHATASE 129 U/L (46-116); BUN 10 mg/dl (9-23); CHLORIDE 103 mmol/L (98-107); POTASSIUM 3.8 mmol/L (3.4-5.1); SGPT/ALT 63 U/L (5-49)
[2024-08-09 11:06] LABS: HBsAG SCREEN Negative (Negative); HCV Ab Non Reactive (Non Reactive); HEP B CORE Ab, IgM Negative (Negative)
== END | disposition home or self-care (01) ==
LOC: LAB 11:01
PROVIDERS: ATTEND Internal Medicine
DX: R74.8 Abnormal levels of other serum enzymes (principal); W57.XXXA Bitten or stung by nonvenomous insect and other nonvenomous arthropods, initial encounter; Y93.89 Activity, other specified; Y92.89 Other specified places as the place of occurrence of the external cause; Y99.8 Other external cause status

== ENCOUNTER → 2024-09-24 | Outpatient (CLI) | payer OTHER | END | disposition home or self-care (01) | LOC: RAD 16:46 | PROVIDERS: ATTEND Allergy & Immunology | DX: J98.4 Other disorders of lung (principal); R06.02 Shortness of breath; M43.8X4 Other specified deforming dorsopathies, thoracic region; Z90.49 Acquired absence of other specified parts of digestive tract ==

== ENCOUNTER → 2024-09-28 | Outpatient (CLI) | payer OTHER | END | disposition home or self-care (01) | LOC: US 08-17 01:55 | PROVIDERS: ATTEND Internal Medicine | DX: Z12.31 Encounter for screening mammogram for malignant neoplasm of breast (principal); R92.343 Mammographic extreme density, bilateral breasts; R74.8 Abnormal levels of other serum enzymes; Z90.49 Acquired absence of other specified parts of digestive tract ==

== ENCOUNTER → 2024-10-12 | Outpatient (CLI) | payer OTHER ==
[2024-10-12 10:53] LABS: BASO # 0.0 10*3/uL (0.0-0.1); BASO % 0.8 % (0.0-1.0); EOS # 0.1 10*3/uL (0.0-0.4); EOS % 3.6 % (1.0-4.0); MEAN CELL VOLUME 93.9 fl (81.0-99.0); MEAN CORPUSCULAR HGB 30.7 pg (27.0-31.0); MEAN PLATELET VOLUME 9.4 fl (9.6-12.3); MONO # 0.4 10*3/uL (0.1-1.0); MONO % 9.2 % (3.0-9.0); NEUT # 2.1 10*3/uL (2.3-7.9); NEUT % 53.1 % (47.0-73.0); NUCLEATED RED BLOOD CELL 0.0 % (0.0-0.0); NUCLEATED RED BLOOD CELL 0.0 10*3/uL (0.0-0.0); PLATELET COUNT AUTOMATED 320 10*3/uL (130-400); RED CELL DISTRI WIDTH 13.2 % (0-14.5)
[2024-10-12 11:17] LABS: BUN 13 mg/dl (9-23); SGPT/ALT 14 U/L (5-49)
== END | disposition home or self-care (01) ==
LOC: LAB 10:35
PROVIDERS: ATTEND Internal Medicine
DX: J18.9 Pneumonia, unspecified organism (principal); E53.8 Deficiency of other specified B group vitamins

== ENCOUNTER → 2024-10-19 | Outpatient (CLI) | payer OTHER | LOC: RAD 11:08 | PROVIDERS: ATTEND Internal Medicine | DX: M19.021 Primary osteoarthritis, right elbow (principal); M25.721 Osteophyte, right elbow; M25.521 Pain in right elbow ==

== ENCOUNTER 2024-12-08 19:23 | Emergency (ER) | payer OTHER ==
[~2024-12-08] VITALS: Ht 162.5 cm; Wt 58.1 kg
[2024-12-08] MEDS ORDERED: Tdap Vaccine 0.5 ML SYR (Adult Vaccine) IM ONE (19:55)
[2024-12-08] MEDS ORDERED: Lidocaine Hydrochloride 5 ML AMP SC ONE (20:10)
== END 2024-12-08 20:28 | disposition home or self-care (01) ==
LOC: ED 19:23
DX: S61.412A Laceration without foreign body of left hand, initial encounter (principal); Z88.2 Allergy status to sulfonamides; Z88.8 Allergy status to other drugs, medicaments and biological substances; Z79.899 Other long term (current) drug therapy; Z90.49 Acquired absence of other specified parts of digestive tract; W26.8XXA Contact with other sharp object(s), not elsewhere classified, initial encounter; Y93.89 Activity, other specified; Y92.89 Other specified places as the place of occurrence of the external cause; Y99.8 Other external cause status